=== PATIENT | female | born 1980 | race Caucasian/White ===

== ENCOUNTER → 2017-08-21 13:43 | Outpatient (CLI) | payer BC, SELFPAY ==
[2017-08-21 14:12] LABS: Absolute Lymphocyte Count 1.12 X10^3/ul (0.83-4.51); Absolute Neutrophil Count 5.4 X10^3/uL (2.0-7.7); Basophil# 0.01 X10^3/uL; Basophil% 0.1 % (0-1); Eosinophil# 0.07 X10^3/uL; Hematocrit 38.1 % (37-47); Hemoglobin 12.6 g/dl (12.0-15.0); Lymphocyte # 1.12 X10^3/ul (4.0); Mean Corp Hgb Conc 33.1 g/gl (32-36); Mean Corpuscular Hgb 30.6 pg (27.0-32.0); Mean Corpuscular Volume 92.5 fL (81-99); Mean Platelet Vol. 9.2 fl (6.2-12.0); Monocyte# 0.41 X10^3/uL; Monocyte% 5.8 % (0-10); Neutrophil # 5.38 X10^3/uL (2.7-7.7); Neutrophil % 76.8 % (47-70); Platelet Count 234 K/mm3 (150-450); RBC Distribution Width CV 12.9 % (11.6-14.6); Red Blood Count 4.12 M/mm3 (4.2-5.4)
[2017-08-21 14:15] LABS: POSITIVE COUNT NO; POSITIVE DIFFERENTIAL NO; POSITIVE MORPHOLOGY NO
[2017-08-21 14:41] LABS: Glucose Challenge Gest 1H 50g 127 mg/dL (70-140)
== END ==
PROVIDERS: Family Provider Family Medicine; PCP Family Medicine; Visit Provider Obstetrics & Gynecology
DX: O09.529 Supervision of elderly multigravida, unspecified trimester (principal); O09.92 Supervision of high risk pregnancy, unspecified, second trimester; Z3A.00 Weeks of gestation of pregnancy not specified
CPT/HCPCS: 36415; 82950; 85025

== ENCOUNTER → 2017-09-30 16:02 | Outpatient (CLI) | payer BC, SELFPAY ==
[2017-09-30 16:26] LABS: Protein:Creat Ratio 97 mg/g CRE (0-200)
== END ==
PROVIDERS: Family Provider Family Medicine; PCP Family Medicine; Visit Provider Nurse Practitioner Women's Health
DX: O09.92 Supervision of high risk pregnancy, unspecified, second trimester (principal); Z3A.00 Weeks of gestation of pregnancy not specified
CPT/HCPCS: 82570; 84156

== ENCOUNTER → 2017-10-14 13:34 | Outpatient (CLI) | payer BC, SELFPAY ==
--- NOTE | 2017-10-14 13:30 | US_ITS ---
STUDY: SECOND AND THIRD TRIMESTER OBSTETRICAL ULTRASOUND - LIMITED REASON FOR EXAM: Female, 37 years old. growth. LMP: 02/04/2017 PRIOR ULTRASOUND: 06/26/2017. TECHNIQUE: Transabdominal ultrasound evaluation was performed. FINDINGS: There is a single intrauterine fetus. The fetus is in a breech presentation. There is demonstrated cardiac activity with a heart rate of 139 bpm. There is a normal amniotic fluid volume. The largest amniotic fluid pocket measures 5.7 cm. The amniotic fluid index (GALEN) is 18.6 cm. The placenta is posterior in location and is not low lying. There are Grade 1 placental changes. The cervix measures 4.3 cm in length. BIOMETRY: BPD: 8.9: 36 weeks, 2 days HC: 32.3: 36 weeks, 4 days AC: 31.6: 35 weeks, 4 days FL: 7.0: 35 weeks, 6 days Age by LMP: 36 weeks, 0 days. LUCERO by LMP: 11/11/2017. age by prior US: 35 weeks, 4 days. LUCERO by prior US: 11/14/2017. age by current US: 36 weeks, 1 days. LUCERO by current US: 11/10/2017. Estimated weight: 2765 grams, +/- 404 grams, 45 percentile. Gender: US/OB Limited With Biometrics IMPRESSION: Single live fetus in a breech presentation. survey not performed on this exam. Placenta is grade 1 and is not low-lying. Cervix is closed. age by prior US: 35 weeks, 4 days. LUCERO by prior US: 11/14/2017. Estimated weight: 2765 grams, +/- 404 grams, 45 percentile. Electronically Signed: George Wallace MD at 21:30 EDT , Service support ,
== END ==
PROVIDERS: Family Provider Family Medicine; PCP Family Medicine; Visit Provider Nurse Practitioner Women's Health
DX: O09.529 Supervision of elderly multigravida, unspecified trimester (principal); Z3A.34 34 weeks gestation of pregnancy
CPT/HCPCS: 76816

== ENCOUNTER → 2017-10-14 18:04 | Outpatient (CLI) | payer BC, SELFPAY ==
[2017-10-14 18:49] LABS: Group B Strep DNA By PCR POSITIVE (Negative); Probe Check PASS
== END ==
PROVIDERS: Family Provider Family Medicine; PCP Family Medicine; Visit Provider Nurse Practitioner Women's Health
DX: O09.92 Supervision of high risk pregnancy, unspecified, second trimester (principal); Z3A.00 Weeks of gestation of pregnancy not specified
CPT/HCPCS: 87653

== ENCOUNTER 2017-10-27 10:30 | Outpatient (CLI) | payer BC, SELFPAY ==
[2017-10-27 10:57] VITALS: BMI 31.8
[2017-10-27] MEDS: Lactated Ringers 1,000 ML 125 ML IV (11:00)
[2017-10-27] MEDS: Terbutaline 1 MG/ML Vial 0.25 MG SC (12:00)
--- NOTE | 2017-10-29 06:26 | OB.TRI.NOTE ---
History of Present Illness Date of Service: 10/27/17 Was patient seen by the physician?: Yes Reason For Visit: OVERSION Date of Service: 10/27/17 Final LUCERO: 11/11/17 Gestational age: 38 Weeks and 1 Days History of Present Illness: 37 yo @ 37 weeks presents with breech presentation for external cephalic version. Home Medications Medication Instructions Recorded 1 tab PO QDAY 06/26/17 vitamin,calcium,fvygfyts-gjbr-tecjf acid tablet citalopram 20 mg tablet 20 mg PO QDAY #30 tab 08/21/17 Allergies No Known Allergies Allergy (Verified 10/21/17 12:01) - Pertinent Past Medical History Pertinent Past Medical History: Past Surgical History (Last Reviewed 10/21/17 @ 12:01 by Christiane Carvalho) Previous back surgery (Acute) gallbladder surgery (Acute) Physical Exam General: Alert, Oriented x3, No apparent distress Cardiovascular: Regular rate Lungs: Normal air movement Abdomen: Soft, Non Tender, Gravid Estimated gestational size: Appropriate for gestational size NST - FHR Rate Baby A Baseline: 140 Variability:: Moderate Accelerations:: 15 x 15 Decelerations:: None NST Reactive:: Yes FHR Category:: Category I Uterine Activity:: no regular Impression/Plan 37 yo @ 37 weeks presents for ECV. patient given terbutaline x 1 and multiple attempts were made for both a forward and backward roll and only limited movement of the fetus was accomplished. unsuccessful version attempt. nst done postprocedure and reactive and reassuring, will follow up in the office and plan RLTCS.
== END 2017-10-27 12:50 | disposition home or self-care (01) ==
LOC: WPOUT 10:45 → WP 10:46
PROVIDERS: Family Provider Family Medicine; PCP Family Medicine; Visit Provider Obstetrics & Gynecology
DX: O32.1XX0 Maternal care for breech presentation, not applicable or unspecified (principal); O09.523 Supervision of elderly multigravida, third trimester; Z3A.37 37 weeks gestation of pregnancy
CPT/HCPCS: 59050; 59412; 76815; 96372; 99218; J7120; G0378

== ENCOUNTER 2017-11-02 13:35 | Outpatient (CLI) | payer BC, SELFPAY ==
[2017-11-02 14:01] VITALS: BMI 32.0
[2017-11-02] MEDS: Terbutaline 1 MG/ML Vial 0.25 MG SC (14:43)
--- NOTE | 2017-11-02 15:48 | NURSING ---
pt refusing rhogam with being rh- . states also rh-. Dr Mejia aware
--- NOTE | 2017-11-02 23:26 | OB.TRI.NOTE ---
History of Present Illness Date of Service: 11/02/17 Was patient seen by the physician?: Yes Reason For Visit: OVERSION Date of Service: 11/02/17 Final LUCERO: 11/11/17 Gestational age: 38 Weeks and 5 Days History of Present Illness: 37 yo @ 38w5d presents for repeat attempt at ECV. she has had multiple chiropractor appointments to loosen up her pelvis with persistent breech presentation however the infant appears to be more mobilized now. denies any vb lof admits good fm no regular ctx Home Medications Medication Instructions Recorded citalopram 20 mg tablet 20 mg PO QDAY #30 tab 08/21/17 Allergies No Known Allergies Allergy (Verified 11/02/17 13:13) - Pertinent Past Medical History Pertinent Past Medical History: Past Surgical History (Last Reviewed 11/02/17 @ 13:14 by Simona Judge) Previous back surgery (Acute) gallbladder surgery (Acute) Mom's Labs & Results 11/02/17 14:00 Blood Type B NEGATIVE Course Did the patient receive Yes care? Labs Blood Type: B RH: NEGATIVE RPR/VDRL/Syphilis Nonreactive Rubella status Immune HbSAg Negative Date Done: 05/01/17 Chlamydia Negative Gonorrhea Negative HIV/AIDS Non-Reactive Current Obstetrical History Gestational Diabetes No Incompetent Cervix No Infertility No IUGR No Macrosomia No Hypertension/Pre-eclampsia No Placenta Previa/Abruption No PTL/PROM No Uterine anomaly No Oligohydramnios No Polyhydramnios No Multiple gestation No Past Medical History Asthma No Diabetes No Hypertension No Heart disease No Mitral valve prolapse No Neurologic/Seizure disorder/ No Migraines Kidney disease No Liver disease No Varicosities Yes: left leg Clotting disorders/Hx of DVT No Thyroid Dysfunction No Other medical diseases No Psychiatric disorders Yes: anxiety Major trauma No Abnormal PAP smear No Sleep apnea No Mammogram in the last 2 years No Social History Marital Status: Alleged father Bernardo Hx Smoking No Smoking Status Never smoker Physical Exam General: Alert, Oriented x3, No apparent distress Cardiovascular: Regular rate Lungs: Normal air movement Abdomen: Soft, Non Tender, Gravid Extremities:: No edema Estimated gestational size: Appropriate for gestational size Presentation: Breech Cervix Dilation (cm): 4 NST - FHR Rate Baby A Baseline: 140 Variability:: Moderate Accelerations:: 15 x 15 Decelerations:: None, Early NST Reactive:: Yes FHR Category:: Category I Uterine Activity:: no regular Impression/Plan 37 yo @ 38w5d breech presentation patient presented for external cephalic version, underwent dose of terbutaline and with constant ultrasound and pressure externally, version was completed successfully and without complication or change in heart rate pattern. abdominal binder applied and patient monitored for an nst afterwards. patient declines rhogam due to rh negative status of her . plan IOL 39 weeks due to unstable lie
== END 2017-11-02 16:00 | disposition home or self-care (01) ==
LOC: WPOUT 13:41 → WP 13:43
PROVIDERS: Family Provider Family Medicine; PCP Family Medicine; Visit Provider Obstetrics & Gynecology
DX: O32.1XX0 Maternal care for breech presentation, not applicable or unspecified (principal); O99.343 Other mental disorders complicating pregnancy, third trimester; F41.9 Anxiety disorder, unspecified; O22.03 Varicose veins of lower extremity in pregnancy, third trimester; O09.523 Supervision of elderly multigravida, third trimester; Z3A.38 38 weeks gestation of pregnancy; Z79.899 Other long term (current) drug therapy
CPT/HCPCS: 36415; 59025; 59050; 59412; 86900; 96372; 99218; J7120; G0378

== ENCOUNTER 2017-11-04 07:00 | Inpatient (IN) | payer BC, SELFPAY ==
[2017-11-04 07:33] VITALS: BMI 32.1
[2017-11-04] MEDS: Lactated Ringers 1,000 ML 50 ML IV ×2 (07:35→10:55)
[2017-11-04 08:00] LABS: Hemoglobin 12.3 g/dl (12.0-15.0); Mean Corp Hgb Conc 34.2 g/gl (32-36); Mean Corpuscular Hgb 30.7 pg (27.0-32.0); Mean Corpuscular Volume 89.8 fL (81-99); Platelet Count 272 K/mm3 (150-450); RBC Distribution Width CV 13.1 % (11.6-14.6); RBC Distribution Width SD 42.7 fl (35.1-43.9); Red Blood Count 4.01 M/mm3 (4.2-5.4); White Blood Count 8.9 K/mm3 (4.4-11.0)
[2017-11-04 08:03] LABS: Scan Indicated on CBC? Y/N NO
[2017-11-04] MEDS: Oxytocin 30 units/NS 500 ml 30 UNITS/500 ML IV.SOLN IV (11:31)
[2017-11-04] MEDS: Ondansetron 4 MG/2 ML Vial IV (14:05)
[2017-11-04] MEDS: Oxytocin 30 units/NS 500 ml 30 UNITS/500 ML IV.SOLN 334 UNITS IV (14:50)
[2017-11-04] MEDS: Oxytocin 30 units/NS 500 ml 30 UNITS/500 ML IV.SOLN 167 UNITS IV (15:20)
[2017-11-04] MEDS: Naproxen 250 MG Tablet PO (19:26)
[2017-11-04 19:29] VITALS: BP 107/55; PULSE 60; RESP 18; TEMP 36.6
[2017-11-04] MEDS: oxyCODONE 5 MG Tablet PO (21:29)
[2017-11-05 00:18] VITALS: BP 94/46; PULSE 60; RESP 18; TEMP 37.1
[2017-11-05 04:30] VITALS: BP 103/46; PULSE 70; RESP 16; TEMP 36.6
[2017-11-05] MEDS: Naproxen 250 MG Tablet PO ×2 (05:58→14:23)
[2017-11-05 08:58] VITALS: BP 98/53; PULSE 60; RESP 16; TEMP 36.6
--- NOTE | 2017-11-05 09:10 | PCM.PN.OB ---
Subjective: doing well. No SOB, CP. Home today. - Physical Exam General: Alert, Oriented x3 Abdomen: Soft, Non Tender, - - FF below U Vital Signs Temp Pulse Resp BP 97.8 F 60 16 98/53 L 11/05/17 08:58 11/05/17 08:58 11/05/17 08:58 11/05/17 08:58 Weight: 205 lb Body Mass Index (BMI) 32.1 Intake and Output for Last 24 Hours 11/03/17 11/04/17 11/05/17 23:59 23:59 23:59 Output Total 1350 / 1350 Balance -1350 / -1350 Laboratory Tests Past 24 Hrs 11/04/17 07:35 Blood Type B NEGATIVE Antibody Screen NEGATIVE Medical Necessity - Tobacco Use Smoking Status: Never smoker Assessment/Plan PPD#1 Routine care. . Home today.
--- NOTE | 2017-11-05 09:15 | PCM.DCVAG ---
Additional Instructions: If you experience any of the following, contact your healthcare provider. Bleeding that soaks a pad every hour for 2 hours Fever 100.4 or higher Unrelieved incision or abdominal pain Swelling, redness, discharge or bleeding from your incision or episiotomy site Your incision begins to separate Problems urinating (including inability to urinate or burning while urinating). Visual changes Severe headache Flu-like symptoms Pain or redness in one of both of your breasts Pain, warmth, tenderness or swelling in your legs, especially the calf area Frequent nausea and vomiting Symptoms of depression or anxiety If you experience any of the following, call 911 or go to the nearest Emergency Room. Chest pain Problems breathing Seizure activity Partial or complete paralysis of a body part, slurred speech, weakness or drooping of the face, or a sudden inability to walk or hold your balance Allergies/Adverse Reactions: Allergies No Known Allergies Allergy (Verified 11/02/17 13:13) Medications to take at Discharge Citalopram Hydrobromide [Citalopram HBr] 20 mg PO QDAY 11/04/17 Primary Care Physician: Juventino Whitley MD [Primary Care Provider] -
--- NOTE | 2017-11-05 09:16 | DCINST_ITS ---
Additional Instructions: If you experience any of the following, contact your healthcare provider. * Bleeding that soaks a pad every hour for 2 hours * Fever 100.4 or higher * Unrelieved incision or abdominal pain * Swelling, redness, discharge or bleeding from your incision or episiotomy site * Your incision begins to separate * Problems urinating (including inability to urinate or burning while urinating) . * Visual changes * Severe headache * Flu-like symptoms * Pain or redness in one of both of your breasts * Pain, warmth, tenderness or swelling in your legs, especially the calf area * Frequent nausea and vomiting * Symptoms of depression or anxiety If you experience any of the following, call 911 or go to the nearest Emergency Room. * Chest pain * Problems breathing * Seizure activity * Partial or complete paralysis of a body part, slurred speech, weakness or drooping of the face, or a sudden inability to walk or hold your balance Allergies/Adverse Reactions: Allergies No Known Allergies Allergy (Verified 11/02/17 13:13) Medications to take at Discharge Citalopram Hydrobromide [Citalopram HBr] 20 mg PO QDAY 11/04/17 Primary Care Physician: Juventino Whitley MD [Primary Care Provider] -
[2017-11-05 14:00] VITALS: BP 106/50; PULSE 66; RESP 16; TEMP 36.6
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
--- NOTE | 2017-11-06 06:37 | PCM.OB.VAG ---
Vaginal Delivery Maternal Presentation: Medically Indicated Induction iol unstable lie 39 weeks Method of Induction: Pitocin Amniotic Membrane Rupture Type: Artificial Amniotic Fluid Description: Clear Final LUCERO: 11/11/17 Gestational age: 39 Weeks and 0 Days Date of Procedure: 11/04/17 Pre-Operative Diagnosis: iol unstable lie Post-Operative Diagnosis: same Surgery/ Procedure Performed: Spontaneous Vaginal Delivery Type of Anesthesia: Epidural Description of Procedure: Patient made quick cervical change after water was broekn at 6 cm and she spontaneously delivered the head in the CATIE presentation. The head was delivered atraumatically. The anterior and posterior shoulders delivered without complication followed by the rest of the infant and the infant was placed on the maternal abdomen. Delayed cord clamping was employed for approximately 60 seconds. Cord was clamped and cut and gentle traction was applied to the cord and the placenta delivered spontaneously immediately following it was noted to be intact with three-vessel cord. The perineum and vagina were inspected and noted to have no laceration. EBL was 100 cc. Patient and tolerated delivery well.
== END 2017-11-05 18:20 | disposition home or self-care (01) | DRG 775 ==
PROVIDERS: Admitting Provider Obstetrics & Gynecology; Family Provider Family Medicine; PCP Family Medicine; Visit Provider Obstetrics & Gynecology
DX: O32.0XX0 Maternal care for unstable lie, not applicable or unspecified (principal); Z37.0 Single live birth; Z3A.39 39 weeks gestation of pregnancy
CPT/HCPCS: 59025; 59050; 76815; 85027; 86850; 86900; 99218; J7120; G0378; J2405

== ENCOUNTER → 2019-08-10 | Outpatient (CLI) | payer OTHER, SELFPAY ==
[2019-08-10 09:32] VITALS: BMI 29.8
[2019-08-10 13:57] LABS: Amphetamine Urine VISTA NEGATIVE (<1000 ng/mL); Barbiturate Urine VISTA NEGATIVE (< 200 ng/mL); Benzodiazepine Urine VISTA NEGATIVE (< 200 ng/mL); Cocaine Urine VISTA NEGATIVE (< 300 ng/mL); Ecstacy Urine VISTA NEGATIVE (< 500 ng/mL); Methadone Urine VISTA NEGATIVE (< 300 ng/mL); PCP Urine VISTA NEGATIVE (< 25 ng/mL); THC Urine VISTA NEGATIVE (< 50 ng/mL); Vista UDS pH Range 7
[2019-08-10 17:05] LABS: Chlamydia Trachomatis by PCR Negative (Negative); Neisserai gonorrhoeae by PCR Negative (Negative); Probe Check PASS; Sample Adequacy Control PASS; Specimen Processing Control PASS
== END | disposition home or self-care (01) ==
LOC: LABSPEC 12:59
PROVIDERS: PCP Family Medicine; Referring Provider Obstetrics & Gynecology; Visit Provider Obstetrics & Gynecology
DX: Z34.90 Encounter for supervision of normal pregnancy, unspecified, unspecified trimester (principal)
CPT/HCPCS: 80307; 87086; 87088; 87491; 87591

== ENCOUNTER → 2019-09-08 15:08 | Outpatient (CLI) | payer OTHER, SELFPAY ==
[2019-09-08 14:49] VITALS: BMI 29.8
[2019-09-08 15:55] LABS: Absolute Lymphocyte Count 1.93 X10^3/uL (0.83-4.51); Absolute Neutrophil Count 7.4 X10^3/uL (2.0-7.7); Basophil# 0.06 X10^3/uL; Basophil% 0.6 % (0-1); Eosinophil# 0.21 X10^3/uL; Eosinophils% 2.1 % (0-5); Hemoglobin 13.6 g/dL (12.0-15.0); Lymphocyte # 1.93 X10^3/ul (4.0); Lymphocyte % 18.9 % (19-41); Mean Corpuscular Hgb 30.8 pg (27.0-32.0); Mean Corpuscular Volume 90.7 fL (81-99); Mean Platelet Vol. 9.3 fl (6.2-12.0); Monocyte# 0.61 X10^3/uL; NRBC Flagged by Analyzer 0 % (0-5); Neutrophil # 7.35 X10^3/uL (2.7-7.7); Neutrophil % 71.9 % (47-70); Platelet Count 258 K/mm3 (150-450); RBC Distribution Width CV 12.6 % (11.6-14.6); RBC Distribution Width SD 41.9 fl (35.1-43.9); Red Blood Count 4.41 M/mm3 (4.2-5.4); White Blood Count 10.2 K/mm3 (4.4-11.0)
[2019-09-08 18:53] LABS: HIV - WCH Non-Reactive (Nonreactive); Hepatitis B Surface Antigen Non-Reactive (Nonreactive); Hepatitis C Antibody Non-Reactive (Nonreactive); Rubella IgG 251.9 IU/mL
[2019-09-16 04:37] LABS: Rapid Plasmin Reagin (RPR) NONREACTIVE (NONREACTIVE)
== END ==
PROVIDERS: PCP Family Medicine; Referring Provider Nurse Practitioner Women's Health; Visit Provider Nurse Practitioner Women's Health
DX: Z34.90 Encounter for supervision of normal pregnancy, unspecified, unspecified trimester (principal)
CPT/HCPCS: 36415; 85025; 86592; 86703; 86762; 86803; 86850; 86900; 86901; 87340

== ENCOUNTER → 2019-12-14 11:39 | Outpatient (CLI) | payer OTHER, SELFPAY ==
[2019-12-01 15:01] VITALS: BMI 32.1
[2019-12-14 13:30] LABS: Absolute Lymphocyte Count 1.52 X10^3/uL (0.83-4.51); Absolute Neutrophil Count 7.5 X10^3/uL (2.0-7.7); Basophil# 0.06 X10^3/uL; Basophil% 0.6 % (0-1); Eosinophil# 0.09 X10^3/uL; Eosinophils% 0.9 % (0-5); Hematocrit 36.6 % (37-47); Hemoglobin 12.4 g/dL (12.0-15.0); Lymphocyte # 1.52 X10^3/ul (4.0); Lymphocyte % 15.7 % (19-41); Mean Corp Hgb Conc 33.9 g/dL (32-36); Mean Corpuscular Hgb 31.8 pg (27.0-32.0); Mean Corpuscular Volume 93.8 fL (81-99); Mean Platelet Vol. 9.9 fl (6.2-12.0); Monocyte# 0.48 X10^3/uL; NRBC Flagged by Analyzer 0 % (0-5); Neutrophil # 7.46 X10^3/uL (2.7-7.7); Neutrophil % 77.2 % (47-70); Platelet Count 248 K/mm3 (150-450); RBC Distribution Width CV 12.6 % (11.6-14.6); White Blood Count 9.7 K/mm3 (4.4-11.0)
[2019-12-14 14:01] LABS: Glucose Challenge Gest 1H 50g 95 mg/dL (70-140)
== END ==
PROVIDERS: PCP Family Medicine; Visit Provider Obstetrics & Gynecology
DX: Z34.90 Encounter for supervision of normal pregnancy, unspecified, unspecified trimester (principal)
CPT/HCPCS: 36415; 82950; 85025

== ENCOUNTER → 2020-02-17 15:54 | Outpatient (CLI) | payer OTHER, SELFPAY ==
[2020-02-06 14:24] VITALS: BMI 30.4
[2020-02-17 13:51] VITALS: BMI 30.4
--- NOTE | 2020-02-17 15:57 | US_ITS ---
STUDY: SECOND AND THIRD TRIMESTER OBSTETRICAL ULTRASOUND REASON FOR EXAM: Female, 39 years old GROWTH LMP: TECHNIQUE: Transabdominal TECHNICAL QUALITY: Adequate. PRIOR ULTRASOUND: None. FINDINGS: There is a single intrauterine fetus. The fetus is in a cephalic presentation. There is demonstrated cardiac activity with a heart rate of 127 bpm. There is a normal amniotic fluid volume. The largest amniotic fluid pocket measures 5.7 x 4.8 cm. The amniotic fluid index (GALEN) is 16.12 cm. The placenta is anterior and fundal There are Grade 1 placental changes. The cervix measures 4 cm in length. The bilateral adnexal regions are not visualized BIOMETRY: BPD: 8.67 cm: 34 weeks, 6 days HC: 33.02 cm: 37 weeks, 4 days AC: 30.78 cm: 34 weeks, 5 days FL: 6.67 cm: 34 weeks, 2 days CI: 0.72 FL/BPD: 0.76 FL/HC: FL/AC: 0.21 HC/AC: 1.07 age by current US: 35 weeks, 2 days. LUCERO by current US: 03/21/2020. Estimated weight: grams, +/- grams, %. age by prior US: weeks, days. LUCERO by prior US: . Age by LMP: 36 weeks, 5 days. LUCERO by LMP: 03/11/2020. ANATOMY: Not studied at this time US/OB Limited With Biometrics IMPRESSION: Viable intrauterine gestation approximately 35-36 weeks gestational age. No significant abnormality Electronically Signed: Braydon Harrison MD at 17:40 EDT , Service support ,
== END ==
PROVIDERS: PCP Family Medicine; Referring Provider Nurse Practitioner Women's Health; Visit Provider Nurse Practitioner Women's Health
DX: O09.92 Supervision of high risk pregnancy, unspecified, second trimester (principal); Z3A.00 Weeks of gestation of pregnancy not specified
CPT/HCPCS: 76816; 87081

== ENCOUNTER → 2020-02-24 17:39 | Outpatient (CLI) | payer OTHER, SELFPAY ==
[2020-02-23 15:35] VITALS: BMI 30.4
== END ==
PROVIDERS: PCP Family Medicine; Referring Provider Obstetrics & Gynecology; Visit Provider Obstetrics & Gynecology
DX: Z11.59 Encounter for screening for other viral diseases (principal)
CPT/HCPCS: 87635; C9803; U0003

== ENCOUNTER 2020-03-03 04:08 | Inpatient (IN) | payer OTHER, SELFPAY ==
[2020-03-01 16:09] VITALS: BMI 30.4
[2020-03-03] VITALS (45 sets, daily range): BP systolic 80–136; BP diastolic 40–82; PULSE 50–83; RESP 14–18; TEMP 26.8–37; O2SAT 91–99; BMI 33.5
[2020-03-03] MEDS: Lactated Ringers 1,000 ML 50 ML IV (04:30)
[2020-03-03] MEDS: Lactated Ringers 500 ML 999 ML IV (04:32)
[2020-03-03 04:50] LABS: Absolute Lymphocyte Count 2.26 X10^3/uL (0.83-4.51); Absolute Neutrophil Count 9.7 X10^3/uL (2.0-7.7); Basophil# 0.05 X10^3/uL; Basophil% 0.4 % (0-1); Eosinophil# 0.11 X10^3/uL; Eosinophils% 0.9 % (0-5); Hematocrit 38.9 % (37-47); Hemoglobin 13.2 g/dL (12.0-15.0); Lymphocyte # 2.26 X10^3/ul (4.0); Lymphocyte % 17.5 % (19-41); Mean Corp Hgb Conc 33.9 g/dL (32-36); Mean Corpuscular Hgb 30.8 pg (27.0-32.0); Mean Corpuscular Volume 90.9 fL (81-99); Mean Platelet Vol. 9.7 fl (6.2-12.0); Monocyte# 0.71 X10^3/uL; Monocyte% 5.5 % (0-10); NRBC Flagged by Analyzer 0 % (0-5); Neutrophil # 9.71 X10^3/uL (2.7-7.7); Neutrophil % 75.2 % (47-70); Platelet Count 296 K/mm3 (150-450); RBC Distribution Width CV 12.6 % (11.6-14.6); Red Blood Count 4.28 M/mm3 (4.2-5.4); White Blood Count 12.9 K/mm3 (4.4-11.0)
[2020-03-03] MEDS: fentaNYL-bupivacaine (epidural) 100 ML BAG EPIDURAL (05:28)
[2020-03-03] MEDS: Oxytocin 30 units/NS 500 ml 30 UNITS/500 ML IV.SOLN 334 UNITS IV (06:54)
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
--- NOTE | 2020-03-03 07:23 | PCM.OPRPT ---
Problem List (1) Active labor at term Status: Acute (2) AMA (advanced maternal age) multigravida 35+ Status: Acute Comment: genetic counseling provided. declined screening. growth us at 36 weeks-34%. nl anatomy (3) Anxiety Status: Acute Comment: celexain past, no meds now, stable (4) Status: Acute Qualifiers: Comment: genetic, carrier, and ntd screening declined. GBS - (5) Rh negative state in antepartum period Status: Acute Comment: A negative-patient declines rhogam (6) Supervision of high risk in second trimester Status: Acute Comment: PRR LUCERO: 03/27/2020 PC: Lissette Camacho Caleb, Christopher, Heather, Jordan, Victoria, Leigha Spouse: Bernardo Vaginal Delivery Maternal Presentation: Active Labor ial Amniotic Membrane Rupture Type: Artificial Amniotic Fluid Description: Clear Final LUCERO: 03/11/20 Gestational age: 38 Weeks and 6 Days Date of Procedure: 03/03/20 Pre-Operative Diagnosis: ial Post-Operative Diagnosis: same Surgery/ Procedure Performed: Spontaneous Vaginal Delivery Type of Anesthesia: Epidural Description of Procedure: Patient began pushing and delivered the head in the JUDI presentation. The head was delivered atraumatically The anterior and posterior shoulders delivered without complication followed by the rest of the and the infant was placed on the maternal abdomen. Delayed cord clamping was employed for approximately 60 seconds. Cord was clamped and cut and gentle traction was applied to the cord and the placenta delivered spontaneously immediately following it was noted to be intact with three-vessel cord. The perineum and vagina were inspected and noted to have no laceration. EBL was 50 cc. Patient and infant tolerated delivery well. Presentation: JUDI Placental Delivery Description: Spontaneous Placenta Disposition: [facility] Cord Entanglement: None Estimated Blood Loss: 50 A gender: Female Episiotomy Description: None Medications given after delivery: IV Pitocin Complications: None Multi Select Codes - Urinary/Genital Urinary/Genital CPT Codes: 23748 Vaginal Delivery [facility]
--- NOTE | 2020-03-03 07:24 | DCINST_ITS ---
Discharge Diet: No Restrictions Discharge Activity: Return to Normal Activity, May not drive while taking narcotic pain medications., May Shower May resume sexual activity in: 4-6 weeks Call your doctor if your incision/area has: Continuous Slow Oozing, Sudden Increased Bleeding, Increased Pain/ Swelling, Increased Redness, Foul Smelling Discharge Additional Instructions: If you experience any of the following, contact your healthcare provider. * Bleeding that soaks a pad every hour for 2 hours * Fever 100.4 or higher * Unrelieved incision or abdominal pain * Swelling, redness, discharge or bleeding from your incision or episiotomy site * Your incision begins to separate * Problems urinating (including inability to urinate or burning while urinating). * Visual changes * Severe headache * Flu-like symptoms * Pain or redness in one of both of your breasts * Pain, warmth, tenderness or swelling in your legs, especially the calf area * Frequent nausea and vomiting * Symptoms of depression or anxiety If you experience any of the following, call 911 or go to the nearest Emergency Room. * Chest pain * Problems breathing * Seizure activity * Partial or complete paralysis of a body part, slurred speech, weakness or drooping of the face, or a sudden inability to walk or hold your balance Allergies/Adverse Reactions: Allergies No Known Allergies Allergy (Verified 03/01/20 15:40) Medications to take at Discharge vitamin#30 30 mg iron-10 mg iron-folic acid 1 mg-omg3 capsule cap PO 09/08/19 Please Follow Up With: Daisha Mejia MD - [phone] When: Call to make an appointment with your doctor in 6 weeks. If you had elevated Blood pressure or 4th degree laceration you will need to be seen in 2 weeks. Primary Care Physician: Juventino Whitley MD [Primary Care Provider] - Test Results: Test results from this visit will be discussed in further detail at your follow- up appointment, if applicable.
--- NOTE | 2020-03-03 07:24 | PCM.DCVAG ---
Discharge Diet: No Restrictions Discharge Activity: Return to Normal Activity, May not drive while taking narcotic pain medications., May Shower May resume sexual activity in: 4-6 weeks Call your doctor if your incision/area has: Continuous Slow Oozing, Sudden Increased Bleeding, Increased Pain/ Swelling, Increased Redness, Foul Smelling Discharge Additional Instructions: If you experience any of the following, contact your healthcare provider. Bleeding that soaks a pad every hour for 2 hours Fever 100.4 or higher Unrelieved incision or abdominal pain Swelling, redness, discharge or bleeding from your incision or episiotomy site Your incision begins to separate Problems urinating (including inability to urinate or burning while urinating). Visual changes Severe headache Flu-like symptoms Pain or redness in one of both of your breasts Pain, warmth, tenderness or swelling in your legs, especially the calf area Frequent nausea and vomiting Symptoms of depression or anxiety If you experience any of the following, call 911 or go to the nearest Emergency Room. Chest pain Problems breathing Seizure activity Partial or complete paralysis of a body part, slurred speech, weakness or drooping of the face, or a sudden inability to walk or hold your balance Allergies/Adverse Reactions: Allergies No Known Allergies Allergy (Verified 03/01/20 15:40) Medications to take at Discharge vitamin#30 30 mg iron-10 mg iron-folic acid 1 mg-omg3 capsule cap PO 09/08/19 Please Follow Up With: Daisha Mejia MD - [phone] When: Call to make an appointment with your doctor in 6 weeks. If you had elevated Blood pressure or 4th degree laceration you will need to be seen in 2 weeks. Primary Care Physician: Juventino Whitley MD [Primary Care Provider] - Test Results: Test results from this visit will be discussed in further detail at your follow-up appointment, if applicable.
[2020-03-03] MEDS: 0.9% Saline Lock 10 ML Syringe IV (09:57)
[2020-03-03] MEDS: Naproxen 250 MG Tablet 500 MG PO (21:31)
[2020-03-04] MEDS: Acetaminophen 500 MG Tablet 1000 MG PO ×2 (02:02→09:59)
[2020-03-04 03:14] VITALS: BP 100/59; RESP 16; TEMP 36.7
[2020-03-04 03:16] VITALS: BP 100/59; PULSE 53
[2020-03-04 08:19] VITALS: BP 113/73; PULSE 63
[2020-03-04 08:20] VITALS: BP 113/73; PULSE 63; RESP 18; TEMP 36.6; O2SAT 96
--- NOTE | 2020-03-04 09:05 | PCM.PN.OB ---
Patient Problems: Active and Suspected Problems (Last Reviewed 03/01/20 @ 15:41 by Sabrina eL) Active labor at term (Acute) Subjective: Patient doing well without complaints. Tolerating PO. Ambulating and voiding without difficulty. breast feeding well. Denies chest pain, shortness of breath, calf pain/swelling, fevers, chills, lightheadedness. - Physical Exam Vitals/I&O's: Vital Signs Temp Pulse Resp BP Pulse Ox 97.8 F 63 18 113/73 96 03/04/20 08:20 03/04/20 08:20 03/04/20 08:20 03/04/20 08:20 03/04/20 08:20 Oxygen Delivery Method Room Air Weight: 214 lb 4.8 oz Body Mass Index (BMI) 33.5 Intake and Output for Last 24 Hours 03/02/20 03/03/20 03/04/20 23:59 23:59 23:59 Intake Total 1294.17 / 1294.17 Output Total 250 / 250 Balance 1044.17 / 1044.17 General: Alert, Oriented x3 Current Medications Acetaminophen (Tylenol) 1,000 mg PO Q8H PRN PRN PRN Reason: Pain Score 1-3/10 Last Admin: 03/04/20 02:02 Dose: 1,000 mg Documented by: Bisacodyl (Dulcolax) 10 mg RECTAL UD PRN PRN Reason: If no BM Dibucaine (Dibucaine) 1 applic TOPICAL TID PRN PRN; Protocol PRN Reason: Discomfort Hydrocortisone (Hytone) 1 applic TOPICAL TID PRN PRN; Protocol PRN Reason: Discomfort Methylergonovine Maleate (Methergine) 0.2 mg IM X1 PRN PRN Reason: Excess bleeding/uterine atony Naproxen (Naprosyn) 500 mg PO Q8H PRN PRN PRN Reason: Pain Score 1-3/10 Last Admin: 03/03/20 21:31 Dose: 500 mg Documented by: Ondansetron HCl (Zofran) 4 mg IV Q4H PRN PRN PRN Reason: Nausea Oxycodone HCl (Oxyir) 5 - 10 mg PO Q4H PRN PRN PRN Reason: Pain Score 4-10/10 Senna/Docusate Sodium (Senokot-S, Maddy-Colace) 1 - 2 tablet PO DAILY PRN PRN PRN Reason: Constipation Simethicone (Mylicon) 80 mg PO PCHS PRN PRN Reason: Indigestion/Stomach pain Sodium Chloride () 5 - 15 ml IV UD PRN PRN Reason: SALINE FLUSH Last Admin: 03/03/20 09:57 Dose: 10 ml Documented by: Medical Necessity - Tobacco Use Smoking Status: Never smoker Assessment/Plan All Active Problems (Last Reviewed 03/01/20 @ 15:41 by Sabrina Le) Active labor at term (Acute) (Acute) Rh negative state in antepartum period (Acute) Anxiety (Acute) AMA (advanced maternal age) multigravida 35+ (Acute) Supervision of high risk in second trimester (Acute) malpresentation (Resolved) GBS (group B Streptococcus carrier), +RV culture, currently (Resolved) Subchorionic hematoma in first trimester (Resolved) s/p PPD # 1 1. routine post delivery care 2. breast feeding- support given 3. rh negative 4. rubella immune
[2020-03-04 11:23] VITALS: RESP 18
== END 2020-03-04 11:10 | disposition home or self-care (01) | DRG 807 ==
LOC: WPOUT 04:09 → WP 04:09
PROVIDERS: Admitting Provider Obstetrics & Gynecology; PCP Family Medicine; Visit Provider Obstetrics & Gynecology
DX: O26.893 Other specified pregnancy related conditions, third trimester (principal); Z37.0 Single live birth; Z3A.37 37 weeks gestation of pregnancy; Z67.91 Unspecified blood type, Rh negative
CPT/HCPCS: 59025; 59050; 85025; 86850; 86900; 86901; 99218; J7120; A4216; G0378

== ENCOUNTER → 2021-12-11 | Outpatient (CLI) | payer OTHER, SELFPAY ==
[2021-12-11 14:25] LABS: hCG Titer Quant., Serum 4321 mIU/mL (1-3)
[2021-12-15 08:27] LABS: HPV APTIMA, High Risk Negative (Negative)
== END | disposition home or self-care (01) ==
PROVIDERS: PCP Family Medicine; Visit Provider Obstetrics & Gynecology
DX: O20.0 Threatened abortion (principal); Z12.4 Encounter for screening for malignant neoplasm of cervix; Z3A.00 Weeks of gestation of pregnancy not specified
CPT/HCPCS: 36415; 84702; 87624; 88175; G0145

== ENCOUNTER → 2021-12-13 | Outpatient (CLI) | payer OTHER, SELFPAY ==
[2021-12-13 08:22] LABS: hCG Titer Quant., Serum 4840 mIU/mL (1-3)
== END | disposition home or self-care (01) ==
LOC: LAB 06:03
PROVIDERS: PCP Family Medicine; Visit Provider Obstetrics & Gynecology
DX: O20.0 Threatened abortion (principal); Z3A.00 Weeks of gestation of pregnancy not specified
CPT/HCPCS: 36415; 84702

== ENCOUNTER → 2021-12-16 | Outpatient (CLI) | payer OTHER, SELFPAY ==
[2021-12-16 08:21] LABS: hCG Titer Quant., Serum 4378 mIU/mL (1-3)
== END | disposition home or self-care (01) ==
LOC: LAB 05:55
PROVIDERS: PCP Family Medicine; Referring Provider Obstetrics & Gynecology; Visit Provider Obstetrics & Gynecology
DX: O20.0 Threatened abortion (principal); Z3A.00 Weeks of gestation of pregnancy not specified
CPT/HCPCS: 36415; 84702

== ENCOUNTER 2022-05-12 15:13 | Outpatient (CLI) | payer OTHER, SELFPAY ==
[2022-05-12 16:18] LABS: Absolute Lymphocyte Count 1.48 X10^3/uL (0.83-4.51); Absolute Neutrophil Count 7.7 X10^3/uL (2.0-7.7); Basophil# 0.05 X10^3/uL; Basophil% 0.5 % (0-1); Eosinophil# 0.16 X10^3/uL; Eosinophils% 1.6 % (0-5); Hemoglobin 13.1 g/dL (12.0-15.0); Lymphocyte # 1.48 X10^3/ul (0.83-4.51); Mean Corp Hgb Conc 35.4 g/dL (32-36); Mean Corpuscular Hgb 31.2 pg (27.0-32.0); Mean Corpuscular Volume 88.1 fL (81-99); Mean Platelet Vol. 9.6 fl (6.2-12.0); Monocyte# 0.36 X10^3/uL; Monocyte% 3.7 % (0-10); NRBC Flagged by Analyzer 0 % (0-5); Neutrophil # 7.74 X10^3/uL (2.7-7.7); Neutrophil % 78.7 % (47-70); Platelet Count 272 K/mm3 (150-450); RBC Distribution Width CV 12.6 % (11.6-14.6); RBC Distribution Width SD 40.1 fl (35.1-43.9); White Blood Count 9.8 K/mm3 (4.4-11.0)
[2022-05-12 16:47] LABS: Glucose Challenge Gest 1H 50g 165 mg/dL (70-140)
[2022-05-12 17:29] LABS: HIV - WCH Non-Reactive (Nonreactive); Hepatitis B Surface Antigen Non-Reactive (Nonreactive); Hepatitis C Antibody Non-Reactive (Nonreactive); Rubella IgG Reactive (Nonreactive); Syphilis Antibodies Non-reactive
[2022-05-12 17:35] LABS: Amphetamine Urine VISTA NEGATIVE (<1000 ng/mL); Barbiturate Urine VISTA NEGATIVE (< 200 ng/mL); Benzodiazepine Urine VISTA NEGATIVE (< 200 ng/mL); Cocaine Urine VISTA NEGATIVE (< 300 ng/mL); Ecstacy Urine VISTA NEGATIVE (< 500 ng/mL); Methadone Urine VISTA NEGATIVE (< 300 ng/mL); PCP Urine VISTA NEGATIVE (< 25 ng/mL); THC Urine VISTA NEGATIVE (< 50 ng/mL); Vista UDS pH Range 5
== END 2022-05-12 23:59 | disposition home or self-care (01) ==
PROVIDERS: PCP Family Medicine; Referring Provider Obstetrics & Gynecology; Visit Provider Obstetrics & Gynecology
DX: O09.521 Supervision of elderly multigravida, first trimester (principal); O99.210 Obesity complicating pregnancy, unspecified trimester
CPT/HCPCS: 80307; 82950; 85025; 86703; 86762; 86780; 86803; 86850; 86900; 86901; 87086; 87088; 87340

== ENCOUNTER 2022-05-26 09:54 | Outpatient (CLI) | payer OTHER, SELFPAY ==
[2022-05-26 11:42] LABS: Glucose GTT-Gestational 1 Hr 143 mg/dL (<190)
[2022-05-26 11:52] LABS: Glucose GTT-Gestation. Fasting 86 mg/dL (<105)
[2022-05-26 12:05] LABS: Thyroid Stim Hormone (TSH) 1.02 uIU/mL (0.358-3.74)
[2022-05-26 13:02] LABS: Glucose GTT-Gestational 2 Hr 83 mg/dL (<165)
[2022-05-26 14:05] LABS: Glucose GTT-Gestational 3 Hr 56 L (<145)
== END 2022-05-26 23:59 | disposition home or self-care (01) ==
LOC: LAB 09:54
PROVIDERS: Obstetrics & Gynecology; PCP Family Medicine; Visit Provider Nurse Practitioner Women's Health
DX: O09.521 Supervision of elderly multigravida, first trimester (principal); O99.210 Obesity complicating pregnancy, unspecified trimester; Z13.1 Encounter for screening for diabetes mellitus
CPT/HCPCS: 36415; 82951; 82952; 84443

== ENCOUNTER → 2022-10-13 | Outpatient (CLI) | payer OTHER, SELFPAY ==
--- NOTE | 2022-10-13 13:55 | US_ITS ---
STUDY: SECOND AND THIRD TRIMESTER OBSTETRICAL ULTRASOUND REASON FOR EXAM: Female, 42 years old growth -- 36 Weeks LMP: February 02, 2022. TECHNIQUE: Transabdominal TECHNICAL QUALITY: Adequate. PRIOR ULTRASOUND: None. FINDINGS: There is a single intrauterine fetus. The fetus is in a cephalic presentation. There is demonstrated cardiac activity with a heart rate of 129 bpm. There is a normal amniotic fluid volume. The largest amniotic fluid pocket measures 3.2 cm. The amniotic fluid index (GALEN) is 11.6 cm. The placenta is posterior in location and is not low lying. There are Grade 1 placental changes. Cervical length was not measured due to the head positioning. The adnexal regions are not visualized. BIOMETRY: BPD: 8.5 cm: 34 weeks, 1 days HC: 31.47 cm: 35 weeks, 2 days AC: 31.48 cm: 35 weeks, 3 days FL: 6.46 cm: 33 weeks, 2 days CI: 77% FL/BPD: 76% FL/HC: FL/AC: 21% HC/AC: 1.00 age by current US: 34 weeks, 5 days. LUCERO by current US: November 19, 2022. Estimated weight: 2502 grams, +/- 375 grams, 18 %. Age by LMP: 36 weeks, 1 days. LUCERO by LMP: November 09, 2022. US/OB Limited With Biometrics IMPRESSION: Single live intrauterine gestation with a mean gestational age of 34 weeks and 5 days. Electronically Signed: Tin Vazquez MD at 12:34 EDT ,
== END | disposition home or self-care (01) ==
PROVIDERS: PCP Family Medicine; Referring Provider Obstetrics & Gynecology; Visit Provider Obstetrics & Gynecology
DX: O09.521 Supervision of elderly multigravida, first trimester (principal); Z3A.00 Weeks of gestation of pregnancy not specified
CPT/HCPCS: 76816; 87081

== ENCOUNTER 2022-10-29 19:40 | Inpatient (IN) | payer OTHER, SELFPAY ==
[2022-10-29] VITALS (40 sets, daily range): BP systolic 95–145; BP diastolic 49–98; PULSE 53–85; TEMP 35.4–36.6; O2SAT 93–100; BMI 34.4
[2022-10-29] MEDS: LACTATED RINGERS 500 ML 999 ML IV (20:00)
[2022-10-29 20:12] LABS: Absolute Lymphocyte Count 2.18 X10^3/uL (0.83-4.51); Absolute Neutrophil Count 8.5 X10^3/uL (2.0-7.7); Basophil# 0.06 X10^3/uL; Basophil% 0.5 % (0-1); Eosinophil# 0.07 X10^3/uL; Eosinophils% 0.6 % (0-5); Hematocrit 37.1 % (37-47); Hemoglobin 12.4 g/dL (12.0-15.0); Lymphocyte # 2.18 X10^3/ul (0.83-4.51); Lymphocyte % 18.6 % (19-41); Mean Corp Hgb Conc 33.4 g/dL (32-36); Mean Corpuscular Hgb 30.7 pg (27.0-32.0); Mean Corpuscular Volume 91.8 fL (81-99); Mean Platelet Vol. 10.1 fl (6.2-12.0); Monocyte# 0.79 X10^3/uL; Monocyte% 6.8 % (0-10); NRBC Flagged by Analyzer 0 % (0-5); Neutrophil # 8.53 X10^3/uL (2.7-7.7); Neutrophil % 72.9 % (47-70); Platelet Count 257 K/mm3 (150-450); RBC Distribution Width CV 12.8 % (11.6-14.6); RBC Distribution Width SD 42.8 fl (35.1-43.9); Red Blood Count 4.04 M/mm3 (4.2-5.4); White Blood Count 11.7 K/mm3 (4.4-11.0)
[2022-10-29] MEDS: Lactated Ringers 1,000 ML 200 ML IV (20:31)
[2022-10-29] MEDS: Ondansetron 4 MG/2 ML Vial IV (20:56)
--- NOTE | 2022-10-29 20:59 | HP.PCM.OB_ITS ---
HPI - General General Date of Admission: 10/29/22 HPI Narrative DANIELLE CABRAL, is a 42 y/o @ 38 weeks 3 days who presents to L&D with painful contractions. She was 2 cm in office and made cervical change to 4 cm with bulging membranes. patient denies loss of fluid, vaginal bleeding, or dec fm and is requesting epidural. Maternal Data Information LUCERO Calculator Estimated Delivery Date Method Current WG Current Estimate 11/09/22 LMP (Certain) 38w 3d Other Estimates 11/11/22 Ultrasound #1 38w 1d PFSH PFSH Medical History Complete Home Medications vitamin#30 30 mg iron-10 mg iron-folic acid 1 mg-omg3 capsule 1 cap PO DAILY 09/08/19 [History Last Taken 03/02/20 08:00] Allergy/AdvReac Type Severity Reaction Status Date / Time No Known Allergies Allergy Verified 10/29/22 19:43 Family History Grandmother Cancer, Onset Age: 80 Grandfather Cancer prostate cancer Surgical History History of cholecystectomy Previous back surgery Social History adopted: No household members: family housing: house number of children: 9 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 Date Name GA/Weeks Outcome Route Bth Weight Infant Gen Labor Lgth Anesthesia Del Locatn Provider FOB Unknown 2003- Janice live - full term Female Unknown 2005- Hugo live - full term Female Unknown 2007- Artemio live - full term Male Unknown 2009- Enmanuel live - full term Male Unknown 2011- Allison live - full term Female Unknown 2013- Alfredito live - full term Female Unknown 2015- Catherine live - full term Female 11/04/17 Carol 39 live - full term 6lbs 7 oz Female epidural [facility] Dr. Roberto [place] 03/03/20 Laura 38 live - full term Female epi dural [facility] Delivery Date: 03/03/20 Last Updated by: Desirae Grimes no complications Visit Details Expected Delivery Route/Plan Labor Preferences- CB/BF classes: [] labor support person: [] labor intervention preferences: [] pain management options preferred: [] cut cord/dad catch: [] : [] PP control planned: [] discussed possible routes of delivery and associated risks: [] special requests: [] Plans Covid status: discussed Flu vaccine: discussed Tdap vaccine: declined Rhogam: declined rhogam her and her are rhogam LARC form signed: declined movement and labor precautions reviewed. Problem list reviewed and updated with the most current plan of care details and appropriate orders placed. Relevant counseling for the gestational age provided. Continue routine care and follow up unless otherwise noted in visit notes/problem list details OB Flowsheet Initial Weight: Not Recorded Date -?-?-?-?-?-?-?-?-?-?-?-?- EGA Weight BP Urine Prot -?-?-?-?-?-?-?-?-?-?-?-?- Glucose FHR FuHt Pres Dilation -?-?-?-?-?-?-?-?-?-?-?-?- Effaced St Visit Note 04/15/22 -?-?-?-?-?-?-?-?-?-?-?-?- 10w 2d 196 lb 6 oz 122/81 -?-?-?-?-?-?-?-?-?-?-?-?- 170 -?-?-?-?-?-?-?-?-?-?-?-?- JV- CRL consiste nt with LMP 05/12/22 -?-?-?-?-?-?-?-?-?-?-?-?- 14w 1d 199 lb 2 oz 112/68 Nega tive -?-?-?-?-?-?-?-?-?-?-?-?- Negative 160 -?-?-?-?-?-?-?-?-?-?-?-?- MH-Nausea improv ed. No VB or cramping. [facility] US order sent 06/25/22 -?-?-?-?-?-?-?-?-?-?-?-?- 20w 3d 203 lb 113/67 Negative -?-?-?-?-?-?-?-?-?-?-?-?- Negative 150 -?-?-?-?-?-?-?-?-?-?-?-?- JV- no complaint s. had anatomy scan done in [place] yesterday. results pending. also had further thyroid studies that were abnormal and not in record. pt will bring this next time. 07/23/22 -?-?-?-?-?-?-?-?-?-?-?-?- 24w 3d 215 lb 8 oz 119/80 Nega tive -?-?-?-?-?-?-?-?-?-?-?-?- Negative 140 24 -?-?-?-?-?-?-?-?-?-?-?-?- LC- doing well. discussed recommendations for q4 week growth scans, 28 week labs including glucose. pt is not receptive, does not desire growth scans unless change in fundal heights. -discussed abnormal glucose in early pre gnancy and need for repeat between 24-28 weeks. will consider alternative options. LC- doing well. normal anato my. discussed recommendations for q4 week growth scans, 28 week labs including glucose. pt is not receptive, does not desire growth scans unless change in fundal heights. -discussed abnormal glucose in early pre gnancy and need for repeat between 24-28 weeks. will consider alternative options. 09/26/22 -?-?-?-?-?-?-?-?-?-?-?-?- 33w 5d 216 lb 4 oz 112/60 Nega tive -?-?-?-?-?-?-?-?-?-?-?-?- Negative 140 34 -?-?-?-?-?-?-?-?-?-?-?-?- Sm- no vb lof go od fm no regular ctx. missed appointment due to vacation and GI illness. declines repeating GCT will check 10/13/22 -?-?-?-?-?-?-?-?-?-?-?-?- 36w 1d 219 lb 118/74 Negative -?-?-?-?-?-?-?-?-?-?-?-?- Negative 140 Cephalic 1.5 -?-?-?-?-?-?-?-?-?-?-?-?- SM- no vb lof go od fm no regular ctx gbs collected 10/20/22 -?-?-?-?-?-?-?-?-?-?-?-?- 37w 1d 218 lb 4 oz 138/71 Nega tive -?-?-?-?-?-?-?-?-?-?-?-?- Negative 130 Cephalic -?-?-?-?-?-?-?-?-?-?-?-?- SM- no vb lof go od fm no regular ctx 10/27/22 -?-?-?-?-?-?-?-?-?-?-?-?- 38w 1d 221 lb 4 oz 115/75 Nega tive -?-?-?-?-?-?--?-?-?-?-?-?- Negative 130 3 -?-?-?-?-?-?-?-?-?-?-?-?- SM- no vb lof go od fm no regular ctx membranes swept NST FHR Rate Baby A Baseline: 130 Variability:: Minimal and Moderate Accelerations:: 15 x 15 Decelerations:: None FHR Category:: Category I ROS Constitutional Constitutional: Denies change in weight, fatigue, fever(s), headache(s), poor appetite or weakness Eyes Eyes: Denies blurry vision, change in vision, seeing flashes or spots in vision ENT HEENT: Denies dizziness, headache(s), loss taste/smell or sore throat Cardiovascular Cardiovascular: Denies chest pain, dizziness, dyspnea, irregular heart rhythm, leg edema, palpitations, rapid heart rate or vomiting Respiratory/Chest Respiratory/Chest: Denies chest tightness, cough, dyspnea or breast pain Gastrointestinal Gastrointestinal: Denies abdominal pain, anorexia, constipation, cramping, diarrhea, hemorrhoids, vomiting or weight changes Genitourinary Genitourinary: Denies dysuria, flank pain, genital lesions, genital pain, urinary frequency or urinary urgency Musculoskeletal Musculoskeletal: Denies back pain, difficulty walking, joint pain, limited range of motion, muscle cramps or numbness Integumentary Integumentary: Denies lesions or unusual bruising Neurologic Neurologic: Denies abnormal movements, abnormal speech, dizziness, numbness, seizure-like activity or syncope Psychiatric Psychiatric: Denies anxiety, behavioral changes, change in appetite, change in libido, cognitive impairment, confusion, depression, difficulty concentrating, hallucinations or suicidal thoughts Endocrine Endocrinology: Denies excessive sweating, polydipsia or polyuria Hematologic/Lymphatic Hematologic/Lymphatic: Denies easy bleeding, easy bruising or lymphadenopathy Allergic/Immunologic Allergic/Immunologic: Denies itchy eyes, lip swelling, seasonal rhinorrhea, rhinitis, throat swelling, tongue swelling, eczemia, wheezing or asthma Vital Signs Vital Signs Vital Signs: 10/29/22 19:44 10/29/22 19:44 10/29/22 19:44 Temperature Temperature Source Pulse Rate 65 69 Blood Pressure 145/76 H BP Systolic 145 BP Diastolic 76 Pulse Ox 10/29/22 19:44 10/29/22 19:46 10/29/22 19:46 Temperature 95.7 F L Temperature Source Temporal Pulse Rate Blood Pressure BP Systolic BP Diastolic Pulse Ox 100 10/29/22 19:46 10/29/22 20:56 10/29/22 20:56 Temperature 97.7 F L Temperature Source Pulse Rate 85 Blood Pressure BP Systolic BP Diastolic Pulse Ox 93 10/29/22 20:56 10/29/22 20:56 Temperature Temperature Source Pulse Rate 72 Blood Pressure BP Systolic BP Diastolic Pulse Ox 98 Weight Weight: 220 lb Body Mass Index (BMI) 34.4 Physical Exam Const alert, oriented x3, no apparent distress and healthy appearing General Appearance: cooperative; Negative for anxious HEENT normocephalic Face and Sinus: normal facial exam Eyes EOMs intact bilaterally and no scleral icterus General Eye: normal appearance of both eyes Neck full ROM and supple Lymph Lymphatic: no lymphadenopathy noted Chest Chest: abnormal inspection of the chest Resp normal respiratory effort Effort and Inspection: able to speak in complete sentences Cardio regular rate GI soft to palpation and non-tender Inspection: gravid Palpation: soft; Negative for tender external exam normal Amniotic Fluid: ROM+plus Back/Spine no CVA tenderness Extremity normal to inspection, full ROM and no clubbing, cyanosis or edema General Extremity: Negative for calf tenderness or edema Skin Lesions: no lesions Rashes: no rashes Psych mental status grossly normal Labs Labs Labs: Blood Type B NEGATIVE Antibody Screen NEGATIVE Hct 37.1 % (37-47) Hgb 12.4 g/dL (12.0-15.0) Obstetrics US Syphilis Total Ab Non-reactive Rubella IgG Antibody Reactive (Nonreactive) Hep Bs Antigen Non-Reactive (Nonreactive) HIV 1&2 Antibody Non-Reactive (Nonreactive) Glucose 1 Hr 50 gm 165 mg/dL (70-140) H Group B Strep DNA POSITIVE (Negative) H Rhogam given: No Miscellaneous Test Assessment & Plan (1) AMA (advanced maternal age) multigravida 35+: COMMENT: growth US at 36 and weekly NSTs and deliver at 39 (2) Rh negative status during : COMMENT: patient declines rhogam shot because Pt states is A negative (3) Abnormal glucose affecting : COMMENT: 3 HR GTT, 12/5 nl 3 hour GTT (4) Obesity affecting : (5) : QUALIFIERS: Weeks of gestation: 36 weeks Qualified Code(s): Z3A.36 - 36 weeks gestation of COMMENT: GBS neg, anatomy nl, need to collect another urine for lab at second appt. (6) Supervision of elderly multigravida in first trimester: COMMENT: PRR LUCERO 11/09/22 [facility] hugo Camacho, artemio, enmanuel, alfredito hudson, carol pereira, laura donte PLAN: Plan Patient presents IAL, plan expectant management for , pitocin/AROM PRN if needed. Pain management: plans epidural. GBS negative. Management of any complications: ama I have reviewed the [facility] and made any clinically relevant updates.
[2022-10-29] MEDS: Oxytocin 15 Units/NS 250ml 15 UNITS/250 ML IV.SOLN 83 UNITS IV (21:18)
--- NOTE | 2022-10-29 21:25 | EX.PCM.OBRPT ---
Assessment & Plan (1) AMA (advanced maternal age) multigravida 35+: COMMENT: growth US at 36 and weekly NSTs and deliver at 39 (2) Rh negative status during : COMMENT: patient declines rhogam shot because Pt states is A negative (3) Abnormal glucose affecting : COMMENT: 3 HR GTT, 12/5 nl 3 hour GTT (4) Obesity affecting : (5) : QUALIFIERS: Weeks of gestation: 36 weeks Qualified Code(s): Z3A.36 - 36 weeks gestation of COMMENT: GBS neg, anatomy nl, need to collect another urine for lab at second appt. (6) Supervision of elderly multigravida in first trimester: COMMENT: PRR LUCERO 11/09/22 [facility]prise hugo Chou caleb, tristan soto, kelli hernandez leigha, laura donte Maternal Data Information LUCERO Calculator Estimated Delivery Date Method Current WG Current Estimate 11/09/22 LMP (Certain) 38w 3d Other Estimates 11/11/22 Ultrasound #1 38w 1d Final LUCERO: 11/09/22 Final LUCERO Source: LMP Gestational age: 38 weeks 3 days Vaginal Delivery Maternal Presentation Maternal Presentation: Active Labor Operative Information Date of Procedure: 10/29/22 Pre-Operative Diagnosis: 42y/o 38 weeks 3 day srom, Post-Operative Diagnosis: 42 y/o 38 weeks 3 day srom, Surgery / Procedure Performed: Spontaneous Vaginal Delivery Type of Anesthesia: Epidural Anesthesiologist: Mustapha Navarrete Estimated Blood Loss: 25cc Findings Description of Procedure: Patient began pushing and delivered the head in the JUDI presentation. The head was delivered atraumatically. The anterior and posterior shoulders delivered without complication followed by the rest of the infant and the was placed on the maternal abdomen. Delayed cord clamping was employed for approximately 60 seconds. Cord was clamped and cut and gentle traction was applied to the cord and the placenta delivered spontaneously immediately following it was noted to be intact with three-vessel cord. The perineum and vagina were inspected and noted to have no laceration. EBL was 25cc. Patient and infant tolerated delivery well. Presentation: Vertex Amniotic Membrane Rupture Type: Spontaneous Amniotic Fluid Description: Clear Placental Delivery Description: Spontaneous Placenta Disposition: [facility] Cord Vessel Description: 3 Vessels Cord Entanglement: None Infant A Gender: Male (1 minute): 8 (5 minute): 9 Delayed Cord Clamping: Yes Post Vaginal Delivery Episiotomy Description: None Complication Complications: None Multi Select Codes Urinary/Genital Urinary/Genital CPT Codes: 77602 Vaginal Delivery [facility]
--- NOTE | 2022-10-29 21:28 | DCINST_ITS ---
Discharge Instructions Diet Discharge Diet: No restrictions Activity Discharge Activity: Return to Normal Activity, May Not Drive (while taking narcotic pain medications.) and May Shower May resume sexual activity in: 4-6 weeks Dressing / Incision Call your doctor if your incision/area has: Continuous Slow Oozing, Sudden Increased Bleeding, Increased Pain/ Swelling, Increased Redness and Foul Smelling Discharge Follow Up Care Please Follow Up With: Deanna Mallory, DO When: Call [phone] to make an appointment with your doctor in 6 weeks. If you had elevated blood pressure or 4th degree laceration, you will need to be seen in 2 weeks. Test Results: Test results from this visit will be discussed in further detail at your follow- up appointment, if applicable. Discharge Plan Admission Admit Date/Time: 10/29/22 19:40 Attending Provider: Deanna Mallory Primary Care Provider: Juventino Whitley Discharge Orders/Prescriptions Prescriptions: No Action vitamin#30 30 mg iron-10 mg iron-folic acid 1 mg-omg3 capsule 30 mg iron-10 mg iron-1 mg capsule 1 cap PO DAILY Referrals / Follow Up: Juventino Whitley MD [Primary Care Provider] -
[2022-10-29 21:31] LABS: Syphilis Antibodies Non-reactive
[2022-10-29] MEDS: Oxytocin 10 UNITS/ML Vial IM (21:35)
[2022-10-29 22:38] LABS: Chlamydia Trachomatis by PCR Negative (Negative); Neisserai gonorrhoeae by PCR Negative (Negative); Probe Check PASS; Sample Adequacy Control PASS; Specimen Processing Control PASS
[2022-10-30] MEDS: Acetaminophen 500 MG Tablet 1000 MG PO ×2 (00:26→06:45)
[2022-10-30] MEDS: Naproxen 500 MG Tablet PO (02:22)
[2022-10-30 04:12] VITALS: BP 91/43; PULSE 56; RESP 15; TEMP 36.4
--- NOTE | 2022-10-30 07:59 | PCM.PN.OB ---
Subjective Subjective Patient doing well without complaints. Tolerating PO. Ambulating and voiding without difficulty. Feeding well. Denies chest pain, shortness of breath, calf pain/swelling, fevers, chills, lightheadedness. Objective Data Objective Data Vital Signs: Vital Signs Temp Pulse Resp BP Pulse Ox O2 Del Method 97.5 F L 56 L 15 91/43 L 100 Room Air 10/30/22 04:12 10/30/22 04:12 10/30/22 04:12 10/30/22 04:12 10/29/22 23:16 10/30/22 04:12 Oxygen Delivery Method Room Air Weight: 220 lb Body Mass Index (BMI) 34.4 Intake & Output: Intake and Output for Last 24 Hours 10/28/22 10/29/22 10/30/22 23:59 23:59 23:59 Intake Total 646.67 / 646.67 250 / 250 Output Total 225 / 225 Balance 421.67 / 421.67 250 / 250 Lab / Micro Data Result Diagrams: 10/29/22 20:00 Labs: Laboratory Results - last 24 hr 10/29/22 20:00: WBC 11.7 H, RBC 4.04 L, Hgb 12.4, Hct 37.1, MCV 91.8, MCH 30.7, MCHC 33.4, RDW Std Deviation 42.8, RDW Coeff of Adelita 12.8, Plt Count 257, MPV 10.1, Immature Gran % (Auto) 0.600, Neut % (Auto) 72.9 H, Lymph % (Auto) 18.6 L, [place] % (Auto) 6.8, Eos % (Auto) 0.6, Baso % (Auto) 0.5, Absolute Neuts (auto) 8.5 H, Absolute Lymphs (auto) 2.18, Nucleated RBC % 0 10/29/22 20:00: Blood Type B NEGATIVE, Antibody Screen NEGATIVE 10/29/22 20:00: Syphilis Total Ab Non-reactive 10/29/22 20:40: Chlam trachomat DNA PCR Negative, N.gonorrhoeae DNA (PCR) Negative Physical Exam Const alert and oriented x3 HEENT normocephalic Eyes PERRL Neck full ROM Resp normal respiratory effort GI soft to palpation GI Narrative: FF below U Assessment & Plan (1) Spontaneous vaginal delivery: COMMENT: 10/29/22 Girl Maryjo JV (2) Rh negative status during : COMMENT: patient declines rhogam shot because Pt states is A negative PLAN: Plan s/p PPD # 1 1. routine post delivery care 2. breast feeding- support given 3. rh negative 4. rubella immune 5. home today
[2022-10-30 08:33] VITALS: BP 97/54; PULSE 47; RESP 16; TEMP 36.8; O2SAT 97
[2022-10-30 13:34] VITALS: BP 110/68; PULSE 51; RESP 16; TEMP 36.7
[2022-10-30 17:41] VITALS: BP 120/68; PULSE 56; RESP 16; TEMP 36.8
[2022-10-30 20:22] VITALS: BP 126/62; PULSE 57; RESP 14; TEMP 36.7; O2SAT 100
== END 2022-10-30 22:25 | disposition home or self-care (01) | DRG 807 ==
LOC: WPOUT 19:46 → WP 19:46
PROVIDERS: Admitting Provider Obstetrics & Gynecology; PCP Family Medicine; Visit Provider Obstetrics & Gynecology
DX: O26.23 Pregnancy care for patient with recurrent pregnancy loss, third trimester (principal); Z37.0 Single live birth; E66.8 Other obesity; O99.214 Obesity complicating childbirth; Z3A.38 38 weeks gestation of pregnancy; Z67.91 Unspecified blood type, Rh negative
CPT/HCPCS: 59025; 59050; 85025; 86780; 86850; 86900; 86901; 87491; 87591; 99221; J7120; G0378; J2405